=== PATIENT | female | born 1930 | race Caucasian/White ===

== ENCOUNTER 2017-08-09 11:29 | Inpatient (IN) | payer MEDICARE, BC, MEDICAID ==
[2017-08-09] MEDS ORDERED: Sodium Chloride 0.9% 10 ML Syringe FLUSH PRN (12:19)
[2017-08-09] MEDS ORDERED: Docusate Sodium 100 MG Cap PO PRN (12:19)
[2017-08-09] MEDS ORDERED: Polyethylene Glycol 3350 Powder 17 GM Packet PO PRN (12:19)
--- NOTE | 2017-08-09 12:31 | PCM.HP ---
H&P History of Present Illness - General Date of Service: 08/09/17 Admit Problem/Dx: Admission Diagnosis/Problem Admission Diagnosis/Problem Cellulitis Source of Information: Patient, Family, Provider - History of Present Illness Initial Comments - Free Text/Narative: the patient is a 86-year-old lady with a history of diabetes, coronary artery disease, dementia, hypertension. The patient has long-standing lower extremity edema that is severe, managed by lymphedema wraps. The patient was noted to have left heel wound which is thought to be due to decubitus and diabetes. Podiatry has been following. She was noted to have a right foot third toe redness few days ago. The patient was seen in the clinic. Due to multiple allergies it was difficult to find appropriate antibiotic. She was given azithromycin. The patient's redness appear to be worsening and was recommended for direct admission to [facility] in the [place]. She prefers to sleep in chair. But no recent worsening of shortness of breath, chest pain, abdominal pain. The foot is not hurting. She is tolerating lymphedema wraps well. There was no fever noted in the alf. - Related Data Allergies/Adverse Reactions: Allergies Allergy/AdvReac Type Severity Reaction Status Date / Time Penicillins Allergy Cannot Verified 10/25/16 12:02 Remember Home Medications: Home Meds Allopurinol [Zyloprim] 100 mg PO DAILY 01/01/15 [History] Aspirin [Halfprin] 81 mg PO DAILY 01/01/15 [History] Benazepril [Lotensin] 40 mg PO BID 01/01/15 [History] Cyanocobalamin (Vitamin B-12) [Cyanocobalamin Injection] 1 injection IM ASDIRECTED 01/01/15 [History] Docusate Sodium [Colace] 100 mg PO DAILY 01/01/15 [History] Furosemide 40 mg PO BID 01/01/15 [History] Insulin NPH/Insulin Reg,Human [HumuLIN 70-30 Pen] 6 units SUBCUT ACDINNER [History] Insulin NPH/Insulin Reg,Human [HumuLIN 70-30 Pen] 24 units SUBCUT QAM 01/01/15 [ History] Metoprolol Succinate [Toprol XL 50mg] 50 mg PO DAILY 01/01/15 [History] Omeprazole 20 mg PO DAILY 01/01/15 [History] Potassium Chloride 10 meq PO DAILY 01/01/15 [History] Simvastatin [Zocor] 20 mg PO DAILY 01/01/15 [History] Acetaminophen [Tylenol Arthritis Pain] 650 mg PO TID 08/21/16 [History] Vit C/E/Zn/Coppr/Lutein/Zeaxan [Preservision Areds 2 Softgel] 2 each PO DAILY [History] amLODIPine [Norvasc] 5 mg PO DAILY 08/21/16 [History] Escitalopram Oxalate [Lexapro] 5 mg PO BEDTIME 08/30/16 [History] OLANZapine [ZyPREXA] 5 mg PO BEDTIME 08/30/16 [History] Memantine HCl 5 mg PO DAILY 10/25/16 [History] Past Medical History HEENT History: Reports: Impaired Vision Other HEENT History: wears glasses Cardiovascular History: Reports: Bypass, High Cholesterol, Hypertension Respiratory History: Reports: Other (See Below) Other Respiratory History: CHF Gastrointestinal History: Reports: GERD Genitourinary History: Reports: Urinary Incontinence DIGESTER History: Reports: Other OB/BYN History: 6 NVD and 2 miscarriages Musculoskeletal History: Reports: Other (See Below) Other Musculoskeletal History: broken collar bone Neurological History: Reports: CVA Psychiatric History: Reports: Dementia Endocrine/Metabolic History: Reports: Diabetes, Type II, IDDM, Obesity/BMI 30+ Hematologic History: Reports: B12 Deficiency Immunologic History: Reports: None Oncologic (Cancer) History: Reports: None Dermatologic History: Reports: None - Past Surgical History Cardiovascular Surgical History: Reports: Coronary Artery Bypass, Other (See Below) Social & Family History - Family History Family Medical History: Noncontributory Cardiac: Reports: CAD (father, sisters, brothers) Oncologic: Reports: Other (See Below) - Tobacco Use Smoking Status *Q: Former Smoker Years of Tobacco use: 5 Packs/Tins Daily: 1 Second Hand Smoke Exposure: No - Caffeine Use Caffeine Use: Reports: Coffee Caffeine Use Comment: 3-4 cups /day - Alcohol Use Days Per Week of Alcohol Use: 0 - Recreational Drug Use Recreational Drug Use: No - Living Situation & Occupation Living situation: Reports: Extended Care Facility Occupation: Retired H&P Review of Systems - Review of Systems: Review Of Systems: See Below General: Denies: Fever, Chills Pulmonary: Reports: Shortness of Breath (chronic) Cardiovascular: Denies: Chest Pain Gastrointestinal: Denies: Abdominal Pain Skin: Reports: Wound (left heel and right first toe, redness of right second toe) Psychiatric: Reports: Confusion (baseline) Exam - Exam Exam: See Below - Exam Quality Assessment: Supplemental Oxygen General: Alert, Oriented Neck: Supple Lungs: Rales (bilateral) Cardiovascular: Regular Rate, Regular Rhythm (Female) Exam: Normal External Exam Extremities: Pedal Edema (massive bilateral lower extremity edema up to thigh) Skin: Other (left heel deep wound without significant redness, right lower extremity second toe redness somewhat involving the dorsum of the foot, dry wound on first toe) - Patient Data Lab Results Last 24 hrs: Will obtain blood culture, basic metabolic panel, CBC. *Q Meaningful Use (ADM) - VTE *Q VTE Criteria *Q: - Stroke *Q Stroke Criteria *Q: - AMI *Q AMI Criteria *Q: - Problem List (1) Cellulitis SNOMED Code(s): 085665204 ICD Code: L03.90 - CELLULITIS, UNSPECIFIED Status: Acute Current Visit: Yes (2) Chronic hypoxemic respiratory failure SNOMED Code(s): 577294823 ICD Code: J96.11 - CHRONIC RESPIRATORY FAILURE WITH HYPOXIA Status: Acute Current Visit: Yes (3) Diabetes SNOMED Code(s): 20519220 ICD Code: E11.9 - TYPE 2 DIABETES MELLITUS WITHOUT COMPLICATIONS Status: Acute Current Visit: Yes Problem List Initiated/Reviewed/Updated: Yes Orders Last 24hrs: Active Orders 24 hr Category Date Time Status Patient Status [ADT] Routine ADT 08/09/17 12:19 Ordered Glucose [Blood Glucose Check, Bedside] [RC] QIDACANDBED Care 08/09/17 12:17 Ordered Oxygen Therapy [RC] PRN Care 08/09/17 12:19 Ordered Peripheral IV Care [RC] . DIRECTED Care 08/09/17 12:22 Ordered Up With Assistance [RC] ASDIRECTED Care 08/09/17 12:19 Ordered VTE/DVT Education [RC] PER UNIT ROUTINE Care 08/09/17 12:19 Ordered Vital Signs [RC] Q4H Care 08/09/17 12:19 Ordered OT Evaluation and Treatment [CONS] Routine Cons 08/09/17 12:23 Active OT Evaluation and Treatment [CONS] Routine Cons 08/09/17 12:23 Ordered PT Evaluation and Treatment [CONS] Routine Cons 08/09/17 12:23 Ordered Consistent Carbohydrate Diet [DIET] Diet 08/09/17 Dinner Ordered BASIC METABOLIC PANEL,BMP [CHEM] AM Lab 08/10/17 05:11 Ordered CBC WITH AUTO DIFF [HEME] AM Lab 08/10/17 05:11 Ordered CULTURE BLOOD [BC] Stat Lab 08/09/17 12:17 Ordered CULTURE BLOOD [BC] Stat Lab 08/09/17 12:17 Ordered Docusate Sodium [Colace] Med 08/09/17 12:19 Ordered 100 mg PO BID PRN Heparin Sodium Med 08/09/17 14:00 Ordered 5,000 units SUBCUT Q8HR Insulin Aspart [NovoLOG] Med 08/09/17 17:00 Ordered See Protocol SUBCUT TIDAC Polyethylene Glycol 3350 [MiraLAX] Med 08/09/17 12:19 Ordered 17 gm PO DAILY PRN Sodium Chloride 0.9% [Saline Flush] Med 08/09/17 12:19 Ordered 10 ml FLUSH ASDIRECTED PRN Vancomycin Pharmacy to Dose [Pharmacy to Dose - Med 08/09/17 12:30 Ordered Vancomycin] 1 dose .XX ASDIRECTED Blood Culture x2 Reflex Set [OM.PC] Stat Oth 08/09/17 12:17 Ordered Peripheral IV Insertion Adult [OM.PC] Routine Oth 08/09/17 12:19 Ordered Saline Lock Insert [OM.PC] Routine Oth 08/09/17 12:19 Ordered Resuscitation Status Routine Resus Stat 08/09/17 12:19 Ordered Medication Orders Docusate Sodium (Colace) 100 mg PO BID PRN PRN Reason: Constipation Heparin Sodium (Porcine) (Heparin Sodium) 5,000 units SUBCUT Q8HR ELIA Insulin Aspart (Novolog) 0 unit SUBCUT TIDAC ELIA PRN Reason: Protocol Polyethylene Glycol (Miralax) 17 gm PO DAILY PRN PRN Reason: Constipation Sodium Chloride (Saline Flush) 10 ml FLUSH ASDIRECTED PRN PRN Reason: Keep Vein Open Vancomycin HCl (Pharmacy To Dose - Vancomycin) 1 dose .XX ASDIRECTED ELIA Assessment/Plan Comment:: #1 right lower extremity second toe redness appears to have cellulitis Concern for possible osteomyelitis I will obtain blood culture, x-ray of the foot The patient has numerous allergies. We will start IV vancomycin. #2 massive lower extremity edema I will increase the patient's diuretics, continue lymphedema wraps Monitor electrolytes and renal function test #3 history of coronary artery disease likely peripheral artery disease as well Will treat with Plavix, metoprolol, aspirin, Zocor #4 hypertension treat the patient with clonidine Norvasc metoprolol benazepril Follow blood pressure and adjust as needed #5 history of dementia Continue on Zyprexa Will be high risk for hospitalization related acute encephalopathy and delirium development #6 DVT prophylaxis will be with subcutaneous heparin
[2017-08-09 12:57] LABS: CHLORIDE,CL 107 mmol/L (101-111); SODIUM,NA 141 mmol/L (135-145)
--- NOTE | 2017-08-09 14:51 | CR ---
Clinical history: 86-year-old female swelling "red" second toe. Interpretation: Abnormal. Pronounced soft tissue swelling base of the second toe without sign of underlying fracture or inflamm atory periostitis. No current evidence of osteomyelitis. Generalized osteoporosis and chronic mild arthritic changes involving the first metatarsal-phalangeal and all interphalangeal/DIP joints. (Arteriovascular calcifications characteristic of diabetic). Sof t tissue swelling around the ankle.. CONCLUSION: No acute fracture or dislocation right foot. Soft tissue swelling ankle and second toe. No foreign bodies or inflammatory periostitis.
[2017-08-09] MEDS: Furosemide 40 MG Tab PO SCH (15:11)
[2017-08-09] MEDS: Heparin Sodium 5,000 Units/ML Vial SUBCUT SCH ×2 (15:11→21:24)
[2017-08-09] MEDS: Insulin Isophane NPH, Human 100 Units/ML 10 ML Vial SUBCUT SCH (17:31)
[2017-08-09] MEDS: Insulin Aspart 100 Units/ML 3 ML Pen SUBCUT SCH (17:35)
[2017-08-09] MEDS: MELATONIN 1 MG PO SCH (21:20)
[2017-08-09] MEDS: MELATONIN 3 MG PO SCH (21:21)
[2017-08-09] MEDS: Metoprolol Succinate 25 MG Tab.ER PO SCH (21:23)
[2017-08-09] MEDS: cloNIDine 0.1 MG Tab PO SCH (21:24)
[2017-08-09] MEDS: Docusate Sodium 100 MG Cap PO SCH (21:24)
[2017-08-10] MEDS: traMADol 50 MG Tab PO PRN ×3 (05:18→23:38)
[2017-08-10] MEDS: Heparin Sodium 5,000 Units/ML Vial SUBCUT SCH ×3 (06:56→21:51)
[2017-08-10] MEDS: Omeprazole 20 MG Cap.CR PO SCH (06:56)
[2017-08-10] MEDS: Potassium Chloride 10 MEQ Tab.ER PO SCH (08:42)
[2017-08-10] MEDS: Furosemide 40 MG Tab PO SCH ×2 (08:42→13:22)
[2017-08-10] MEDS: Insulin Aspart 100 Units/ML 3 ML Pen SUBCUT SCH ×3 (08:43→17:30)
[2017-08-10] MEDS: Docusate Sodium 100 MG Cap PO SCH ×2 (08:43→20:52)
[2017-08-10] MEDS: cloNIDine 0.1 MG Tab PO SCH ×2 (08:43→20:52)
[2017-08-10] MEDS: Aspirin 81 MG Tab.EC PO SCH (08:43)
[2017-08-10] MEDS: Escitalopram 10 MG Tab PO SCH (08:43)
[2017-08-10] MEDS: Memantine 10 MG Tab PO SCH (08:44)
[2017-08-10] MEDS: Benazepril 10 MG Tab PO SCH (08:44)
[2017-08-10] MEDS: Insulin Isophane NPH, Human 100 Units/ML 10 ML Vial SUBCUT SCH ×2 (08:45→17:26)
[2017-08-10] MEDS: amLODIPine 5 MG Tab PO SCH (08:45)
[2017-08-10] MEDS: Allopurinol 100 MG Tab PO SCH (08:45)
[2017-08-10] MEDS: Clopidogrel 75 MG Tab PO SCH (08:46)
[2017-08-10] MEDS: Metoprolol Succinate 25 MG Tab.ER PO SCH ×2 (08:46→20:53)
--- NOTE | 2017-08-10 09:18 | PCM.PN ---
- General Info Date of Service: 08/10/17 Admission Dx/Problem (Free Text): Admission Diagnosis/Problem Admission Diagnosis/Problem Cellulitis Subjective Update: The patient is feeling well, no fever overnight. No significant pain in the lower extremities. Tolerating lymphedema wrap okay Redness has somewhat improved but still present. The redness started days ago, was not responding to oral outpatient antibiotics. Started on vancomycin - Review of Systems General: Denies: Fever Pulmonary: Denies: Shortness of Breath Cardiovascular: Denies: Chest Pain Gastrointestinal: Denies: Abdominal Pain Genitourinary: Denies: Dysuria - Patient Data Vitals - Most Recent: Last Vital Signs Temp 37.1 C 08/10/17 07:00 Pulse 64 08/10/17 08:46 Resp 20 08/10/17 07:00 BP 152/50 H 08/10/17 08:46 Pulse Ox 99 08/10/17 07:00 Weight - Most Recent: 77.8 kg I&O - Last 24 Hours: Intake & Output 08/09/17 08/10/17 08/10/17 22:59 06:59 14:59 Intake Total 250 Output Total 250 250 Balance 0 -250 Lab Results Last 24 Hours: Laboratory Results - last 24 hr 08/09/17 08/09/17 08/09/17 Range/Units 12:28 12:28 17:08 WBC 5.2 (5.0-10.0) 10^3/uL RBC 3.41 L (4.2-5.4) 10^6/uL Hgb 10.8 L (12.0-16.0) g/dL Hct 33.2 L (37.0-47.0) % MCV 97.4 (80-100) fL MCH 31.7 (27.0-34.0) pg MCHC 32.5 L (33.0-35.0) g/dL Plt Count 126 L (150-450) 10^3/uL Neut % (Auto) 61.7 (42.2-75.2) % Lymph % (Auto) 24.0 (20.5-50.1) % [place] % (Auto) 10.4 H (2-8) % Eos % (Auto) 3.7 H (1.0-3.0) % Baso % (Auto) 0.2 (0.0-1.0) % Sodium 141 (135-145) mmol/L Potassium 3.9 (3.6-5.0) mmol/L Chloride 107 (101-111) mmol/L Carbon Dioxide 26.0 (21.0-31.0) mmol/L Anion Gap 11.9 BUN 43 H (7-18) mg/dL Creatinine 1.1 (0.6-1.3) mg/dL Est Cr Clr Drug Dosing TNP Estimated GFR (MDRD) 47 Glucose 79 (74-105) mg/dL POC Glucose 67 L (83-110) mg/dl Calcium 10.3 H (8.4-10.2) mg/dl 08/09/17 08/10/17 08/10/17 Range/Units 20:55 05:45 05:45 WBC 4.8 L (5.0-10.0) 10^3/uL RBC 3.41 L (4.2-5.4) 10^6/uL Hgb 10.5 L (12.0-16.0) g/dL Hct 33.8 L (37.0-47.0) % MCV 99.1 (80-100) fL MCH 30.8 (27.0-34.0) pg MCHC 31.1 L (33.0-35.0) g/dL Plt Count 126 L (150-450) 10^3/uL Neut % (Auto) 59.9 (42.2-75.2) % Lymph % (Auto) 25.8 (20.5-50.1) % [place] % (Auto) 10.1 H (2-8) % Eos % (Auto) 4.0 H (1.0-3.0) % Baso % (Auto) 0.2 (0.0-1.0) % Sodium 140 (135-145) mmol/L Potassium 4.0 (3.6-5.0) mmol/L Chloride 107 (101-111) mmol/L Carbon Dioxide 25.0 (21.0-31.0) mmol/L Anion Gap 12.0 BUN 41 H (7-18) mg/dL Creatinine 0.9 (0.6-1.3) mg/dL Est Cr Clr Drug Dosing 38.03 Estimated GFR (MDRD) 59 Glucose 127 H (74-105) mg/dL POC Glucose 142 H (83-110) mg/dl Calcium 10.2 (8.4-10.2) mg/dl 08/10/17 Range/Units 07:57 WBC (5.0-10.0) 10^3/uL RBC (4.2-5.4) 10^6/uL Hgb (12.0-16.0) g/dL Hct (37.0-47.0) % MCV (80-100) fL MCH (27.0-34.0) pg MCHC (33.0-35.0) g/dL Plt Count (150-450) 10^3/uL Neut % (Auto) (42.2-75.2) % Lymph % (Auto) (20.5-50.1) % [place] % (Auto) (2-8) % Eos % (Auto) (1.0-3.0) % Baso % (Auto) (0.0-1.0) % Sodium (135-145) mmol/L Potassium (3.6-5.0) mmol/L Chloride (101-111) mmol/L Carbon Dioxide (21.0-31.0) mmol/L Anion Gap BUN (7-18) mg/dL Creatinine (0.6-1.3) mg/dL Est Cr Clr Drug Dosing Estimated GFR (MDRD) Glucose (74-105) mg/dL POC Glucose 130 H (83-110) mg/dl Calcium (8.4-10.2) mg/dl Med Orders - Current: Current Medications Allopurinol (Zyloprim) 100 mg PO DAILY [facility] Last Admin: 08/10/17 08:45 Dose: 100 mg Amlodipine Besylate (Norvasc) 10 mg PO DAILY [facility] Last Admin: 08/10/17 08:45 Dose: 10 mg Aspirin (Halfprin) 81 mg PO DAILY [facility] Last Admin: 08/10/17 08:43 Dose: 81 mg Benazepril HCl (Lotensin) 20 mg PO DAILY [facility] Last Admin: 08/10/17 08:44 Dose: 20 mg Clonidine HCl (Catapres) 0.1 mg PO BID [facility] Last Admin: 08/10/17 08:43 Dose: 0.1 mg Clopidogrel Bisulfate (Plavix) 75 mg PO DAILY [facility] Last Admin: 08/10/17 08:46 Dose: 75 mg Docusate Sodium (Colace) 100 mg PO BID PRN PRN Reason: Constipation Docusate Sodium (Colace) 100 mg PO BID [facility] Last Admin: 08/10/17 08:43 Dose: 100 mg Escitalopram Oxalate (Lexapro) 5 mg PO DAILY [facility] Last Admin: 08/10/17 08:43 Dose: 5 mg Furosemide (Lasix) 40 mg PO BIDDIURETIC [facility] Last Admin: 08/10/17 08:42 Dose: 40 mg Heparin Sodium (Porcine) (Heparin Sodium) 5,000 units SUBCUT Q8HR [facility] Last Admin: 08/10/17 06:56 Dose: 5,000 units Vancomycin HCl 1 gm/ Sodium (Chloride) 250 mls @ 166.667 mls/hr IV Q24H [facility] Last Admin: 08/09/17 15:11 Dose: 166.667 mls/hr Insulin Aspart (Novolog) 0 unit SUBCUT TIDAC [facility] PRN Reason: Protocol Last Admin: 08/10/17 08:43 Dose: Not Given Insulin Human NPH (Novolin N) 4 unit SUBCUT ACDINNER [facility] Last Admin: 08/09/17 17:31 Dose: 4 units Insulin Human NPH (Novolin N) 22 unit SUBCUT QAM [facility] Last Admin: 08/10/17 08:45 Dose: 22 units Memantine (Namenda) 5 mg PO DAILY [facility] Last Admin: 08/10/17 08:44 Dose: 5 mg Metoprolol Succinate (Toprol Xl) 75 mg PO BID [facility] Last Admin: 08/10/17 08:46 Dose: 75 mg Non-Formulary Medication (Acetaminophen [Tylenol Arthritis Pain]) 650 mg PO TID [facility] Melatonin 3 Mg (Tablets Own Med) 0 mg PO BEDTIME [facility] Last Admin: 08/09/17 21:21 Dose: 3 mg Melatonin 1 Mg (Tablets Own Med) 0 each PO BEDTIME [facility] Last Admin: 08/09/17 21:20 Dose: 2 each Omeprazole (Omeprazole) 20 mg PO ACBRK [facility] Last Admin: 08/10/17 06:56 Dose: 20 mg Polyethylene Glycol (Miralax) 17 gm PO DAILY PRN PRN Reason: Constipation Potassium Chloride (Klor-Con 10) 10 meq PO DAILY@0800 [facility] Last Admin: 08/10/17 08:42 Dose: 10 meq Sodium Chloride (Saline Flush) 10 ml FLUSH ASDIRECTED PRN PRN Reason: Keep Vein Open Tramadol HCl (Ultram) 50 mg PO Q6H PRN PRN Reason: Pain Last Admin: 08/10/17 05:18 Dose: 50 mg Vancomycin HCl (Pharmacy To Dose - Vancomycin) 1 dose .XX ASDIRECTED ELIA - Exam General: Alert, Oriented Lungs: Crackles (Scattered and bilateral) Cardiovascular: Regular Rate GI/Abdominal Exam: Normal Bowel Sounds, Soft, Non-Tender Extremities: Pedal Edema Skin: Other (Right foot second toe still somewhat red) - Problem List & Annotations (1) Cellulitis SNOMED Code(s): 133816124 Code(s): L03.90 - CELLULITIS, UNSPECIFIED Status: Acute Current Visit: Yes (2) Chronic hypoxemic respiratory failure SNOMED Code(s): 989333887 Code(s): J96.11 - CHRONIC RESPIRATORY FAILURE WITH HYPOXIA Status: Acute Current Visit: Yes (3) Diabetes SNOMED Code(s): 49004530 Code(s): E11.9 - TYPE 2 DIABETES MELLITUS WITHOUT COMPLICATIONS Status: Acute Current Visit: Yes - Problem List Review Problem List Initiated/Reviewed/Updated: Yes - My Orders Last 24 Hours: My Active Orders 08/09/17 12:17 Glucose [Blood Glucose Check, Bedside] [RC] QIDACANDBED Blood Culture x2 Reflex Set [OM.PC] Stat 08/09/17 12:19 Patient Status [ADT] Routine Oxygen Therapy [RC] PRN Up With Assistance [RC] ASDIRECTED VTE/DVT Education [RC] PER UNIT ROUTINE Vital Signs [RC] 07,11,15,19,23,03 Docusate Sodium [Colace] 100 mg PO BID PRN Polyethylene Glycol 3350 [MiraLAX] 17 gm PO DAILY PRN Sodium Chloride 0.9% [Saline Flush] 10 ml FLUSH ASDIRECTED PRN Peripheral IV Insertion Adult [OM.PC] Routine Saline Lock Insert [OM.PC] Routine Resuscitation Status Routine 08/09/17 12:22 Peripheral IV Care [RC] . DIRECTED 08/09/17 12:23 OT Evaluation and Treatment [CONS] Routine OT Evaluation and Treatment [CONS] Routine PT Evaluation and Treatment [CONS] Routine 08/09/17 12:28 CULTURE BLOOD [BC] Stat 08/09/17 12:30 Vancomycin Pharmacy to Dose [Pharmacy to Dose - Vancomycin] 1 dose .XX ASDIRECTED 08/09/17 12:32 CULTURE BLOOD [BC] Stat 08/09/17 13:03 Dietary Supplements [RC] TIDMEALS 08/09/17 13:27 traMADol [Ultram] 50 mg PO Q6H PRN 08/09/17 14:00 Acetaminophen [Tylenol Arthritis Pain] 650 mg PO TID Furosemide [Lasix] 40 mg PO BIDDIURETIC Heparin Sodium 5,000 units SUBCUT Q8HR Vancomycin [Vancocin] 1 gm Sodium Chloride 0.9% [Normal Saline] 250 ml IV Q24H 08/09/17 14:09 Wound Care [RC] DAILY 08/09/17 17:00 Insulin Aspart [NovoLOG] See Protocol SUBCUT TIDAC Insulin Isophane NPH, Human [NovoLIN N] 4 unit SUBCUT ACDINNER 08/09/17 21:00 Docusate Sodium [Colace] 100 mg PO BID Melatonin [Melatonin] 0 mg PO BEDTIME Metoprolol Succinate [Toprol XL] 75 mg PO BID Non-Formulary Medication [NF Drug] 0 each PO BEDTIME cloNIDine [Catapres] 0.1 mg PO BID 08/09/17 Dinner Consistent Carbohydrate Diet [DIET] Fluid Restriction [DIET] 08/10/17 06:00 Omeprazole 20 mg PO ACBRK 08/10/17 08:00 Potassium Chloride [Klor-Con 10] 10 meq PO DAILY@0800 08/10/17 09:00 Allopurinol [Zyloprim] 100 mg PO DAILY Aspirin [Halfprin] 81 mg PO DAILY Benazepril [Lotensin] 20 mg PO DAILY Clopidogrel [Plavix] 75 mg PO DAILY Escitalopram [Lexapro] 5 mg PO DAILY Insulin Isophane NPH, Human [NovoLIN N] 22 unit SUBCUT QAM Memantine [Namenda] 5 mg PO DAILY amLODIPine [Norvasc] 10 mg PO DAILY 08/12/17 13:30 VANCOMYCIN TROUGH [CHEM] Timed - Plan Plan:: #1 right lower extremity second toe redness appears to have cellulitis blood culture: Pending x-ray of the foot showed no osteomyelitis The patient has numerous antibiotic allergies. We will continue with IV vancomycin. #2 massive lower extremity edema I will continue with the patient's increased diuretics, continue lymphedema wraps Monitor electrolytes and renal function test #3 history of coronary artery disease likely peripheral artery disease as well Will treat with Plavix, metoprolol, aspirin, Zocor #4 hypertension treat the patient with clonidine Norvasc metoprolol benazepril Follow blood pressure and adjust as needed #5 history of dementia Continue on Zyprexa Will be high risk for hospitalization related acute encephalopathy and delirium development #6 DVT prophylaxis will be with subcutaneous heparin
[2017-08-10] MEDS ORDERED: Acetaminophen 325 MG Tab PO PRN (18:10)
[2017-08-10] MEDS: MELATONIN 1 MG PO SCH (20:55)
[2017-08-10] MEDS: MELATONIN 3 MG PO SCH (20:55)
[2017-08-11] MEDS: Heparin Sodium 5,000 Units/ML Vial SUBCUT SCH ×3 (05:35→21:54)
[2017-08-11] MEDS: Omeprazole 20 MG Cap.CR PO SCH (05:35)
[2017-08-11] MEDS: Insulin Aspart 100 Units/ML 3 ML Pen SUBCUT SCH ×3 (09:09→17:23)
[2017-08-11] MEDS: Insulin Isophane NPH, Human 100 Units/ML 10 ML Vial SUBCUT SCH ×2 (09:14→17:56)
[2017-08-11] MEDS: Potassium Chloride 10 MEQ Tab.ER PO SCH (09:20)
[2017-08-11] MEDS: Furosemide 40 MG Tab PO SCH ×2 (09:20→14:53)
[2017-08-11] MEDS: Aspirin 81 MG Tab.EC PO SCH (09:20)
[2017-08-11] MEDS: Allopurinol 100 MG Tab PO SCH (09:21)
[2017-08-11] MEDS: Clopidogrel 75 MG Tab PO SCH (09:21)
[2017-08-11] MEDS: Docusate Sodium 100 MG Cap PO SCH ×2 (09:21→21:50)
[2017-08-11] MEDS: Escitalopram 10 MG Tab PO SCH (09:53)
[2017-08-11] MEDS: Memantine 10 MG Tab PO SCH (09:54)
[2017-08-11] MEDS: Metoprolol Succinate 25 MG Tab.ER PO SCH ×2 (10:05→21:48)
[2017-08-11] MEDS: Benazepril 10 MG Tab PO SCH (10:06)
[2017-08-11] MEDS: amLODIPine 5 MG Tab PO SCH (10:07)
[2017-08-11] MEDS: cloNIDine 0.1 MG Tab PO SCH ×2 (10:08→21:50)
[2017-08-11] MEDS ORDERED: Albuterol/Ipratropium 3.0-0.5 MG/3 ML Neb Soln NEB PRN (10:36)
--- NOTE | 2017-08-11 10:41 | PCM.PN ---
- General Info Date of Service: 08/11/17 Admission Dx/Problem (Free Text): Admission Diagnosis/Problem Admission Diagnosis/Problem Cellulitis Subjective Update: The patient is feeling well, no fever overnight. Has chronic pain in the lower extremities. Tolerating lymphedema wrap Redness has improved but still present. The redness started days ago, was not responding to oral outpatient antibiotics. Continued on vancomycin She has been non ambulatory in the group home - Review of Systems General: Reports: Weakness. Denies: Fever Pulmonary: Denies: Shortness of Breath, Cough, Wheezing Cardiovascular: Denies: Chest Pain Gastrointestinal: Denies: Abdominal Pain Neurological: Reports: Confusion (Mild at baseline) - Patient Data Vitals - Most Recent: Last Vital Signs Temp 36.8 C 08/11/17 10:33 Pulse 50 L 08/11/17 10:33 Resp 20 08/11/17 10:33 BP 153/48 H 08/11/17 10:33 Pulse Ox 100 08/11/17 10:33 Weight - Most Recent: 77.8 kg I&O - Last 24 Hours: Intake & Output 08/10/17 08/11/17 08/11/17 22:59 06:59 14:59 Intake Total 200 50 Output Total 500 400 Balance -300 50 -400 Lab Results Last 24 Hours: Laboratory Results - last 24 hr 08/10/17 08/10/17 08/10/17 Range/Units 10:47 17:08 20:45 POC Glucose 166 H 65 L 97 (83-110) mg/dl 08/11/17 Range/Units 07:38 POC Glucose 96 (83-110) mg/dl Anatoly Results Last 24 Hours: Microbiology 08/09/17 12:32 Aerobic Blood Culture - Preliminary Blood - Venous - Lab Draw NO GROWTH AFTER 1 DAY Anaerobic Blood Culture - Preliminary NO GROWTH AFTER 1 DAY 08/09/17 12:28 Aerobic Blood Culture - Preliminary Blood - Venous NO GROWTH AFTER 1 DAY Anaerobic Blood Culture - Preliminary NO GROWTH AFTER 1 DAY Med Orders - Current: Current Medications Acetaminophen (Tylenol) 650 mg PO Q4H PRN PRN Reason: Pain Last Admin: 08/10/17 18:30 Dose: 650 mg Albuterol/Ipratropium (Duoneb 3.0-0.5 Mg/3 Ml) 3 ml NEB Q4HRRT PRN PRN Reason: sob, cough Allopurinol (Zyloprim) 100 mg PO DAILY [facility] Last Admin: 08/11/17 09:21 Dose: 100 mg Amlodipine Besylate (Norvasc) 10 mg PO DAILY [facility] Last Admin: 08/11/17 10:07 Dose: 10 mg Aspirin (Halfprin) 81 mg PO DAILY [facility] Last Admin: 08/11/17 09:20 Dose: 81 mg Benazepril HCl (Lotensin) 20 mg PO DAILY [facility] Last Admin: 08/11/17 10:06 Dose: 20 mg Clonidine HCl (Catapres) 0.1 mg PO BID [facility] Last Admin: 08/11/17 10:08 Dose: 0.1 mg Clopidogrel Bisulfate (Plavix) 75 mg PO DAILY [facility] Last Admin: 08/11/17 09:21 Dose: 75 mg Docusate Sodium (Colace) 100 mg PO BID PRN PRN Reason: Constipation Docusate Sodium (Colace) 100 mg PO BID [facility] Last Admin: 08/11/17 09:21 Dose: 100 mg Escitalopram Oxalate (Lexapro) 5 mg PO DAILY [facility] Last Admin: 08/11/17 09:53 Dose: 5 mg Furosemide (Lasix) 40 mg PO BIDDIURETIC [facility] Last Admin: 08/11/17 09:20 Dose: 40 mg Heparin Sodium (Porcine) (Heparin Sodium) 5,000 units SUBCUT Q8HR [facility] Last Admin: 08/11/17 05:35 Dose: 5,000 units Vancomycin HCl 1 gm/ Sodium (Chloride) 250 mls @ 166.667 mls/hr IV Q24H [facility] Last Admin: 08/10/17 13:22 Dose: 166.667 mls/hr Insulin Aspart (Novolog) 0 unit SUBCUT TIDAC [facility] PRN Reason: Protocol Last Admin: 08/11/17 09:09 Dose: Not Given Insulin Human NPH (Novolin N) 4 unit SUBCUT ACDINNER [facility] Last Admin: 08/10/17 17:26 Dose: Not Given Insulin Human NPH (Novolin N) 22 unit SUBCUT QAM [facility] Last Admin: 08/11/17 09:14 Dose: 22 units Memantine (Namenda) 5 mg PO DAILY [facility] Last Admin: 08/11/17 09:54 Dose: 5 mg Metoprolol Succinate (Toprol Xl) 75 mg PO BID [facility] Last Admin: 08/11/17 10:05 Dose: 75 mg Melatonin 3 Mg (Tablets Own Med) 0 mg PO BEDTIME [facility] Last Admin: 08/10/17 20:55 Dose: 3 mg Melatonin 1 Mg (Tablets Own Med) 0 each PO BEDTIME [facility] Last Admin: 08/10/17 20:55 Dose: 2 each Omeprazole (Omeprazole) 20 mg PO ACBRK [facility] Last Admin: 08/11/17 05:35 Dose: 20 mg Polyethylene Glycol (Miralax) 17 gm PO DAILY PRN PRN Reason: Constipation Potassium Chloride (Klor-Con 10) 10 meq PO DAILY@0800 [facility] Last Admin: 08/11/17 09:20 Dose: 10 meq Sodium Chloride (Saline Flush) 10 ml FLUSH ASDIRECTED PRN PRN Reason: Keep Vein Open Tramadol HCl (Ultram) 50 mg PO Q6H PRN PRN Reason: Pain Last Admin: 08/10/17 23:38 Dose: 50 mg Vancomycin HCl (Pharmacy To Dose - Vancomycin) 1 dose .XX ASDIRECTED [facility] Discontinued Medications Non-Formulary Medication (Acetaminophen [Tylenol Arthritis Pain]) 650 mg PO TID [facility] - Exam General: Alert, Oriented Neck: Supple Lungs: Rhonchi Cardiovascular: Irregular Rhythm GI/Abdominal Exam: Normal Bowel Sounds, Soft, Non-Tender Extremities: Pedal Edema Skin: Other (Right second toe somewhat swollen and red but the proximal foot has cleared up) - Problem List & Annotations (1) Cellulitis SNOMED Code(s): 194231929 Code(s): L03.90 - CELLULITIS, UNSPECIFIED Status: Acute Current Visit: Yes (2) Chronic hypoxemic respiratory failure SNOMED Code(s): 329348140 Code(s): J96.11 - CHRONIC RESPIRATORY FAILURE WITH HYPOXIA Status: Acute Current Visit: Yes (3) Diabetes SNOMED Code(s): 59273362 Code(s): E11.9 - TYPE 2 DIABETES MELLITUS WITHOUT COMPLICATIONS Status: Acute Current Visit: Yes - Problem List Review Problem List Initiated/Reviewed/Updated: Yes - My Orders Last 24 Hours: My Active Orders 08/10/17 18:10 Acetaminophen [Tylenol] 650 mg PO Q4H PRN 08/11/17 10:36 RT Aerosol Therapy [RC] ASDIRECTED Albuterol/Ipratropium [DuoNeb 3.0-0.5 MG/3 ML] 3 ml NEB Q4HRRT PRN 08/12/17 05:15 BASIC METABOLIC PANEL,BMP [CHEM] AM CBC WITH AUTO DIFF [HEME] AM 08/12/17 13:30 VANCOMYCIN TROUGH [CHEM] Timed - Plan Plan:: #1 right lower extremity second toe redness appears to have cellulitis blood culture: Negative for now x-ray of the foot showed no osteomyelitis The patient has numerous antibiotic allergies. We will continue with IV vancomycin. Plan to switch to Bactrim on discharge #2 massive lower extremity edema I will continue with the patient's increased diuretics, continue lymphedema wraps Monitor electrolytes and renal function test #3 history of coronary artery disease likely peripheral artery disease as well Will treat with Plavix, metoprolol, aspirin, Zocor #4 hypertension treat the patient with clonidine, Norvasc, metoprolol, benazepril Follow blood pressure and adjust as needed #5 history of dementia Continue on Zyprexa Will be high risk for hospitalization related acute encephalopathy and delirium development #6 DVT prophylaxis will be with subcutaneous heparin
[2017-08-11] MEDS: Non-Formulary Medication 1 Each (Acetaminophen [Tylenol Arthritis Pain] 650 MG) PO SCH ×2 (15:03→15:04)
[2017-08-11] MEDS: MELATONIN 3 MG PO SCH (21:51)
[2017-08-11] MEDS: MELATONIN 1 MG PO SCH (21:52)
[2017-08-12] MEDS: Omeprazole 20 MG Cap.CR PO SCH (05:57)
[2017-08-12] MEDS: Insulin Aspart 100 Units/ML 3 ML Pen SUBCUT SCH (08:23)
[2017-08-12] MEDS: Benazepril 10 MG Tab PO SCH (08:40)
[2017-08-12] MEDS: Furosemide 40 MG Tab PO SCH (08:41)
[2017-08-12] MEDS: Metoprolol Succinate 25 MG Tab.ER PO SCH (08:41)
[2017-08-12] MEDS: Insulin Isophane NPH, Human 100 Units/ML 10 ML Vial SUBCUT SCH (08:41)
[2017-08-12] MEDS: Clopidogrel 75 MG Tab PO SCH (08:42)
[2017-08-12] MEDS: Potassium Chloride 10 MEQ Tab.ER PO SCH (08:42)
[2017-08-12] MEDS: Memantine 10 MG Tab PO SCH (08:42)
[2017-08-12] MEDS: Aspirin 81 MG Tab.EC PO SCH (08:42)
[2017-08-12] MEDS: amLODIPine 5 MG Tab PO SCH (08:42)
[2017-08-12] MEDS: Escitalopram 10 MG Tab PO SCH (08:42)
[2017-08-12] MEDS: Docusate Sodium 100 MG Cap PO SCH (08:43)
[2017-08-12] MEDS: Allopurinol 100 MG Tab PO SCH (08:43)
[2017-08-12] MEDS: cloNIDine 0.1 MG Tab PO SCH (08:43)
[2017-08-12] MEDS ORDERED: Enoxaparin 30 MG/0.3 ML Syringe SUBCUT SCH (09:00)
--- NOTE | 2017-08-12 09:32 | PCM.DCSUM1 ---
Discharge Summary - Hospital Course Free Text/Narrative:: The patient is an 86-year-old lady with a history of chronic lower extremity edema. The patient developed redness of the right second toe. Initially was treated with oral antibiotic azithromycin as an outpatient. The redness has worsened The patient was admitted. #1 right lower extremity second toe redness appears to have cellulitis blood culture: Negative for now x-ray of the foot showed no osteomyelitis The patient has numerous antibiotic allergies. She was treated with IV vancomycin. We will switch to Bactrim on discharge #2 massive lower extremity edema I will continue with the patient's increased diuretics, continue lymphedema wraps Monitor electrolytes and renal function test periodically #3 history of coronary artery disease likely peripheral artery disease as well Will treat with Plavix, metoprolol, aspirin, Zocor #4 hypertension treat the patient with clonidine, Norvasc, metoprolol, benazepril #5 history of dementia Continue on Zyprexa - Discharge Data Discharge Date: 08/12/17 Discharge Disposition: DC/Tfer to SNF 03 Condition: Good - Discharge Diagnosis/Problem(s) (1) Cellulitis SNOMED Code(s): 702784204 ICD Code: L03.90 - CELLULITIS, UNSPECIFIED Status: Acute Current Visit: Yes (2) Chronic hypoxemic respiratory failure SNOMED Code(s): 174137163 ICD Code: J96.11 - CHRONIC RESPIRATORY FAILURE WITH HYPOXIA Status: Acute Current Visit: Yes (3) Diabetes SNOMED Code(s): 71969249 ICD Code: E11.9 - TYPE 2 DIABETES MELLITUS WITHOUT COMPLICATIONS Status: Acute Current Visit: Yes - Patient Summary/Data Consults: Consultations 08/09/17 12:23 OT Evaluation and Treatment [CONS] Routine OT Evaluation and Treatment [CONS] Routine PT Evaluation and Treatment [CONS] Routine - Patient Instructions Diet: Heart Healthy Diet, Diabetic Diet Fluid Restriction: 1500 mL Activity: As Tolerated - Discharge Plan Prescriptions/Med Rec: Furosemide [Lasix] 40 mg PO BIDDIURETIC #60 tablet Sulfamethoxazole/Trimethoprim [IJD: Sulfamethoxazole/Trimethoprim DS] 1 tab PO BID #10 tab Home Medications: Home Meds Allopurinol [Zyloprim] 100 mg PO DAILY 01/01/15 [History] Aspirin [Halfprin] 81 mg PO DAILY 01/01/15 [History] Benazepril [Lotensin] 20 mg PO DAILY 01/01/15 [History] Cyanocobalamin (Vitamin B-12) [Cyanocobalamin Injection] 1 injection IM ASDIRECTED 01/01/15 [History] Insulin NPH/Insulin Reg,Human [HumuLIN 70-30 Pen] 4 units SUBCUT ACDINNER [History] Insulin NPH/Insulin Reg,Human [HumuLIN 70-30 Pen] 22 units SUBCUT QAM 01/01/15 [ History] Metoprolol Succinate [Toprol XL 50mg] 75 mg PO BID 01/01/15 [History] Omeprazole 20 mg PO DAILY 01/01/15 [History] Potassium Chloride 10 meq PO DAILY 01/01/15 [History] Acetaminophen [Tylenol Arthritis Pain] 650 mg PO TID 08/21/16 [History] amLODIPine [Norvasc] 10 mg PO DAILY 08/21/16 [History] Escitalopram Oxalate [Lexapro] 5 mg PO DAILY 08/30/16 [History] Memantine HCl 5 mg PO DAILY 10/25/16 [History] Clopidogrel [Plavix] 75 mg PO DAILY 08/09/17 [History] Docusate Sodium [Colace] 100 mg PO BID 08/09/17 [History] Melatonin 5 mg PO BEDTIME 08/09/17 [History] cloNIDine [Catapres] 0.1 mg PO BID 08/09/17 [History] traMADol [Ultram] 50 mg PO Q6H 08/09/17 [History] Furosemide [Lasix] 40 mg PO BIDDIURETIC #60 tablet 08/12/17 [Rx] Sulfamethoxazole/Trimethoprim [IJD: Sulfamethoxazole/Trimethoprim DS] 1 tab PO BID #10 tab 08/12/17 [Rx] Referrals: Rodrigo Hernández MD [Primary Care Provider] - (in 2-3 days re: cellulitis, increased diuretics) - Discharge Summary/Plan Comment DC Time >30 min.: No - General Info Date of Service: 08/12/17 Admission Dx/Problem (Free Text: Admission Diagnosis/Problem Admission Diagnosis/Problem Cellulitis Subjective Update: The patient is feeling well, no fever. Redness has improved but still present in the second toe. The edema appears less - Review of Systems General: Denies: Fever Pulmonary: Denies: Shortness of Breath Cardiovascular: Denies: Chest Pain Gastrointestinal: Denies: Abdominal Pain Genitourinary: Denies: Dysuria - Patient Data Vitals - Most Recent: Last Vital Signs Temp 37.0 C 08/12/17 07:00 Pulse 51 L 08/12/17 08:41 Resp 20 08/12/17 07:00 BP 151/50 H 08/12/17 08:43 Pulse Ox 82 L 08/12/17 07:00 Weight - Most Recent: 77.8 kg I&O - Last 24 hours: Intake & Output 08/11/17 08/12/17 08/12/17 22:59 06:59 14:59 Intake Total 645 200 Output Total 325 555 300 Balance 320 -355 -300 Lab Results - Last 24 hrs: Laboratory Results - last 24 hr 08/11/17 08/11/17 08/11/17 Range/Units 10:54 17:02 20:47 WBC (5.0-10.0) 10^3/uL RBC (4.2-5.4) 10^6/uL Hgb (12.0-16.0) g/dL Hct (37.0-47.0) % MCV (80-100) fL MCH (27.0-34.0) pg MCHC (33.0-35.0) g/dL Plt Count (150-450) 10^3/uL Neut % (Auto) (42.2-75.2) % Lymph % (Auto) (20.5-50.1) % Mills % (Auto) (2-8) % Eos % (Auto) (1.0-3.0) % Baso % (Auto) (0.0-1.0) % Sodium (135-145) mmol/L Potassium (3.6-5.0) mmol/L Chloride (101-111) mmol/L Carbon Dioxide (21.0-31.0) mmol/L Anion Gap BUN (7-18) mg/dL Creatinine (0.6-1.3) mg/dL Est Cr Clr Drug Dosing mL/min Estimated GFR (MDRD) Glucose (74-105) mg/dL POC Glucose 225 H 107 108 (83-110) mg/dl Calcium (8.4-10.2) mg/dl Urine Color (YELLOW) Urine Appearance (CLEAR) Urine pH (5.0-9.0) Ur Specific Rhodes (1.005-1.030) Urine Protein (NEGATIVE) Urine Glucose (UA) (NEGATIVE) Urine Ketones (NEGATIVE) Urine Occult Blood (NEGATIVE) Urine Nitrite (NEGATIVE) Urine Bilirubin (NEGATIVE) Urine Urobilinogen (0.2-1.0) mg/dL Ur Leukocyte Esterase (NEGATIVE) Urine RBC /HPF Urine WBC (0-5/HPF) /HPF Ur Epithelial Cells /HPF Urine Bacteria (0-FEW/HPF) /HPF Urine Mucus /LPF 08/11/17 08/12/17 08/12/17 Range/Units 22:20 06:00 06:00 WBC 5.4 (5.0-10.0) 10^3/uL RBC 3.63 L (4.2-5.4) 10^6/uL Hgb 11.1 L (12.0-16.0) g/dL Hct 36.2 L (37.0-47.0) % MCV 99.7 (80-100) fL MCH 30.6 (27.0-34.0) pg MCHC 30.7 L (33.0-35.0) g/dL Plt Count 133 L (150-450) 10^3/uL Neut % (Auto) 57.7 (42.2-75.2) % Lymph % (Auto) 24.2 (20.5-50.1) % Mills % (Auto) 13.2 H (2-8) % Eos % (Auto) 4.5 H (1.0-3.0) % Baso % (Auto) 0.4 (0.0-1.0) % Sodium 138 (135-145) mmol/L Potassium 4.1 (3.6-5.0) mmol/L Chloride 102 (101-111) mmol/L Carbon Dioxide 29.0 (21.0-31.0) mmol/L Anion Gap 11.1 BUN 40 H (7-18) mg/dL Creatinine 0.9 (0.6-1.3) mg/dL Est Cr Clr Drug Dosing 38.03 mL/min Estimated GFR (MDRD) 59 Glucose 73 L (74-105) mg/dL POC Glucose (83-110) mg/dl Calcium 10.6 H (8.4-10.2) mg/dl Urine Color Yellow (YELLOW) Urine Appearance Cloudy (CLEAR) Urine pH 5.0 (5.0-9.0) Ur Specific Rhodes 1.010 (1.005-1.030) Urine Protein Negative (NEGATIVE) Urine Glucose (UA) Negative (NEGATIVE) Urine Ketones Negative (NEGATIVE) Urine Occult Blood Trace-intact H (NEGATIVE) Urine Nitrite Negative (NEGATIVE) Urine Bilirubin Negative (NEGATIVE) Urine Urobilinogen 0.2 (0.2-1.0) mg/dL Ur Leukocyte Esterase Small H (NEGATIVE) Urine RBC 0-5 /HPF Urine WBC 10-20 H (0-5/HPF) /HPF Ur Epithelial Cells Few /HPF Urine Bacteria Moderate H (0-FEW/HPF) /HPF Urine Mucus Few H /LPF 08/12/17 Range/Units 07:58 WBC (5.0-10.0) 10^3/uL RBC (4.2-5.4) 10^6/uL Hgb (12.0-16.0) g/dL Hct (37.0-47.0) % MCV (80-100) fL MCH (27.0-34.0) pg MCHC (33.0-35.0) g/dL Plt Count (150-450) 10^3/uL Neut % (Auto) (42.2-75.2) % Lymph % (Auto) (20.5-50.1) % Mills % (Auto) (2-8) % Eos % (Auto) (1.0-3.0) % Baso % (Auto) (0.0-1.0) % Sodium (135-145) mmol/L Potassium (3.6-5.0) mmol/L Chloride (101-111) mmol/L Carbon Dioxide (21.0-31.0) mmol/L Anion Gap BUN (7-18) mg/dL Creatinine (0.6-1.3) mg/dL Est Cr Clr Drug Dosing mL/min Estimated GFR (MDRD) Glucose (74-105) mg/dL POC Glucose 84 (83-110) mg/dl Calcium (8.4-10.2) mg/dl Urine Color (YELLOW) Urine Appearance (CLEAR) Urine pH (5.0-9.0) Ur Specific Rhodes (1.005-1.030) Urine Protein (NEGATIVE) Urine Glucose (UA) (NEGATIVE) Urine Ketones (NEGATIVE) Urine Occult Blood (NEGATIVE) Urine Nitrite (NEGATIVE) Urine Bilirubin (NEGATIVE) Urine Urobilinogen (0.2-1.0) mg/dL Ur Leukocyte Esterase (NEGATIVE) Urine RBC /HPF Urine WBC (0-5/HPF) /HPF Ur Epithelial Cells /HPF Urine Bacteria (0-FEW/HPF) /HPF Urine Mucus /LPF CLARISSE Results - Last 24 hrs: Microbiology 08/09/17 12:32 Aerobic Blood Culture - Preliminary Blood - Venous - Lab Draw NO GROWTH AFTER 2 DAYS Anaerobic Blood Culture - Preliminary NO GROWTH AFTER 2 DAYS 08/09/17 12:28 Aerobic Blood Culture - Preliminary Blood - Venous NO GROWTH AFTER 2 DAYS Anaerobic Blood Culture - Preliminary NO GROWTH AFTER 2 DAYS Med Orders - Current: Current Medications Acetaminophen (Tylenol) 650 mg PO Q4H PRN PRN Reason: Pain Last Admin: 08/10/17 18:30 Dose: 650 mg Albuterol/Ipratropium (Duoneb 3.0-0.5 Mg/3 Ml) 3 ml NEB Q4HRRT PRN PRN Reason: sob, cough Last Admin: 08/11/17 11:30 Dose: 3 ml Allopurinol (Zyloprim) 100 mg PO DAILY [facility] Last Admin: 08/12/17 08:43 Dose: 100 mg Amlodipine Besylate (Norvasc) 10 mg PO DAILY [facility] Last Admin: 08/12/17 08:42 Dose: 10 mg Aspirin (Halfprin) 81 mg PO DAILY [facility] Last Admin: 08/12/17 08:42 Dose: 81 mg Benazepril HCl (Lotensin) 20 mg PO DAILY [facility] Last Admin: 08/12/17 08:40 Dose: 20 mg Clonidine HCl (Catapres) 0.1 mg PO BID [facility] Last Admin: 08/12/17 08:43 Dose: 0.1 mg Clopidogrel Bisulfate (Plavix) 75 mg PO DAILY [facility] Last Admin: 08/12/17 08:42 Dose: 75 mg Docusate Sodium (Colace) 100 mg PO BID PRN PRN Reason: Constipation Docusate Sodium (Colace) 100 mg PO BID [facility] Last Admin: 08/12/17 08:43 Dose: 100 mg Enoxaparin Sodium (Lovenox) 30 mg SUBCUT DAILY [facility] Last Admin: 08/12/17 08:43 Dose: 30 mg Escitalopram Oxalate (Lexapro) 5 mg PO DAILY [facility] Last Admin: 08/12/17 08:42 Dose: 5 mg Furosemide (Lasix) 40 mg PO BIDDIURETIC [facility] Last Admin: 08/12/17 08:41 Dose: 40 mg Vancomycin HCl 1 gm/ Sodium (Chloride) 250 mls @ 166.667 mls/hr IV Q24H [facility] Last Admin: 08/11/17 14:57 Dose: 166.667 mls/hr Insulin Aspart (Novolog) 0 unit SUBCUT TIDAC [facility] PRN Reason: Protocol Last Admin: 08/12/17 08:23 Dose: Not Given Insulin Human NPH (Novolin N) 4 unit SUBCUT ACDINNER [facility] Last Admin: 08/11/17 17:56 Dose: 4 units Insulin Human NPH (Novolin N) 22 unit SUBCUT QAM [facility] Last Admin: 08/12/17 08:41 Dose: 22 units Memantine (Namenda) 5 mg PO DAILY [facility] Last Admin: 08/12/17 08:42 Dose: 5 mg Metoprolol Succinate (Toprol Xl) 75 mg PO BID [facility] Last Admin: 08/12/17 08:41 Dose: 75 mg Melatonin 3 Mg (Tablets Own Med) 0 mg PO BEDTIME [facility] Last Admin: 08/11/17 21:51 Dose: 3 mg Melatonin 1 Mg (Tablets Own Med) 0 each PO BEDTIME [facility] Last Admin: 08/11/17 21:52 Dose: 2 each Omeprazole (Omeprazole) 20 mg PO ACBRK [facility] Last Admin: 08/12/17 05:57 Dose: 20 mg Polyethylene Glycol (Miralax) 17 gm PO DAILY PRN PRN Reason: Constipation Potassium Chloride (Klor-Con 10) 10 meq PO DAILY@0800 [facility] Last Admin: 08/12/17 08:42 Dose: 10 meq Sodium Chloride (Saline Flush) 10 ml FLUSH ASDIRECTED PRN PRN Reason: Keep Vein Open Last Admin: 08/11/17 14:59 Dose: 10 ml Tramadol HCl (Ultram) 50 mg PO Q6H PRN PRN Reason: Pain Last Admin: 08/10/17 23:38 Dose: 50 mg Vancomycin HCl (Pharmacy To Dose - Vancomycin) 1 dose .XX ASDIRECTED [facility] Discontinued Medications Heparin Sodium (Porcine) (Heparin Sodium) 5,000 units SUBCUT Q8HR [facility] Last Admin: 08/11/17 21:54 Dose: 5,000 units Non-Formulary Medication (Acetaminophen [Tylenol Arthritis Pain]) 650 mg PO TID [facility] Last Admin: 08/11/17 15:04 Dose: Not Given - Exam General: Reports: Alert, Oriented (Limited) Neck: Reports: Supple Lungs: Reports: Rhonchi Cardiovascular: Reports: Regular Rate, Regular Rhythm GI/Abdominal Exam: Normal Bowel Sounds, Soft, Non-Tender, Other (Obese) Extremities: Normal Inspection, Pedal Edema (With lymphedema wraps) Skin: Reports: Other (Mild swelling and redness of the right second toe) *Q Meaningful Use (DIS) - VTE *Q VTE Criteria *Q: - Stroke *Q Stroke Criteria *Q: - AMI *Q AMI Criteria *Q:
[2017-08-12 10:55] VITALS: BP 130/40
== END 2017-08-12 11:10 | DRG 603 ==
LOC: UNDOADMIN 11:29 → DL.MS 11:29
PROVIDERS: ADMIT Internal Medicine; ATTEND Internal Medicine
DX: L03.031 Cellulitis of right toe (principal); R60.9 Edema, unspecified; I25.10 Atherosclerotic heart disease of native coronary artery without angina pectoris; I10 Essential (primary) hypertension; I73.9 Peripheral vascular disease, unspecified; F03.90 Unspecified dementia, unspecified severity, without behavioral disturbance, psychotic disturbance, mood disturbance, and anxiety; E11.9 Type 2 diabetes mellitus without complications; Z79.4 Long term (current) use of insulin; K21.9 Gastro-esophageal reflux disease without esophagitis; I50.9 Heart failure, unspecified; Z86.73 Personal history of transient ischemic attack (TIA), and cerebral infarction without residual deficits; Z95.1 Presence of aortocoronary bypass graft; Z87.891 Personal history of nicotine dependence
CPT/HCPCS: 36415; 73620-RT; 80048; 81001; 82962; 85025; 87040; 94010; 94640; 97140-GO; 97166-GO; A9270-GY; J1644; J1650; J1815; J1815-GY; J3370; J7050

== ENCOUNTER 2017-11-09 11:18 | Emergency (ER) | payer MEDICARE, BC, MEDICAID ==
[2017-11-09 12:40] VITALS: BP 148/59
--- NOTE | 2017-11-09 13:38 | EDM.PDOC ---
ED HPI GENERAL MEDICAL PROBLEM - General Chief Complaint: General Stated Complaint: FROM [facility] Time Seen by Provider: 11/09/17 13:37 Source of Information: Reports: Family, Longterm Records History Limitations: Reports: Altered Mental Status - History of Present Illness INITIAL COMMENTS - FREE TEXT/NARRATIVE: Patient is brought here by her daughter. Patient has bilateral lower extremity pitting edema along with cellulitis to her toes bilaterally. Onset: Gradual Duration: Day(s): Location: Reports: Other (Bilateral feet) Treatments CONSULTANT IN ERGONOMICS AND SAFETY: Reports: Dressing(s) - Related Data Allergies Allergy/AdvReac Type Severity Reaction Status Date / Time Penicillins Allergy Severe systemic Verified 11/09/17 12:25 vasculitis aspartame Allergy Nausea Verified 11/09/17 12:25 hydrochlorothiazide Allergy Nausea Verified 11/09/17 12:25 [From Zestoretic] levofloxacin [From Levaquin] Allergy Nausea Verified 11/09/17 12:25 lisinopril [From Zestoretic] Allergy Nausea Verified 11/09/17 12:25 sibutramine [From Meridia] Allergy Nausea Verified 11/09/17 12:25 Home Meds: Home Meds Allopurinol [Zyloprim] 100 mg PO DAILY 01/01/15 [History] Aspirin [Halfprin] 81 mg PO DAILY 01/01/15 [History] Benazepril [Lotensin] 20 mg PO DAILY 01/01/15 [History] Cyanocobalamin (Vitamin B-12) [Cyanocobalamin Injection] 1 injection IM ASDIRECTED 01/01/15 [History] Insulin NPH/Insulin Reg,Human [HumuLIN 70-30 Pen] 16 units SUBCUT QAM 01/01/15 [ History] Metoprolol Succinate [Toprol XL 50mg] 75 mg PO BID 01/01/15 [History] Omeprazole 20 mg PO DAILY 01/01/15 [History] Potassium Chloride 10 meq PO DAILY 01/01/15 [History] Acetaminophen [Tylenol Arthritis Pain] 650 mg PO TID 08/21/16 [History] amLODIPine [Norvasc] 10 mg PO DAILY 08/21/16 [History] Escitalopram Oxalate [Lexapro] 5 mg PO DAILY 08/30/16 [History] Memantine HCl 5 mg PO DAILY 10/25/16 [History] Clopidogrel [Plavix] 75 mg PO DAILY 08/09/17 [History] Docusate Sodium [Colace] 100 mg PO BID 08/09/17 [History] Melatonin 5 mg PO BEDTIME 08/09/17 [History] cloNIDine [Catapres] 0.1 mg PO BID 08/09/17 [History] traMADol [Ultram] 50 mg PO Q6H 08/09/17 [History] Furosemide [Lasix] 40 mg PO BIDDIURETIC #60 tablet 08/12/17 [Rx] Doxycycline [Doxycycline Hyclate] 100 mg PO DAILY 11/09/17 [History] Past Medical History HEENT History: Reports: Cataract, Impaired Vision Other HEENT History: wears glasses Cardiovascular History: Reports: Bypass, Heart Valve Replacement, High Cholesterol, Hypertension Respiratory History: Reports: Other (See Below) Other Respiratory History: CHF Gastrointestinal History: Reports: GERD Genitourinary History: Reports: Renal Disease, Urinary Incontinence Other Genitourinary History: History of Diabetes 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 OB/BYN History: 6 NVD and 2 miscarriages Musculoskeletal History: Reports: Osteoarthritis, Other (See Below) Other Musculoskeletal History: broken collar bone Neurological History: Reports: Alzheimers Disease, CVA Other Neuro History: 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 Psychiatric History: Reports: Alzheimers Disease, Dementia Endocrine/Metabolic History: Reports: Diabetes, Type II, IDDM, Obesity/BMI 30+ Hematologic History: Reports: B12 Deficiency Immunologic History: Reports: None Oncologic (Cancer) History: Reports: None Dermatologic History: Reports: Decubitus Ulcer, Other (See Below) Other Dermatologic History: left heel - Infectious Disease History Infectious Disease History: Reports: None - Past Surgical History Head Surgeries/Procedures: Reports: None HEENT Surgical History: Reports: None Cardiovascular Surgical History: Reports: Coronary Artery Bypass, Valve Replacement, Vascular Surgery, Other (See Below) Respiratory Surgical History: Reports: None GI Surgical History: Reports: None Female Surgical History: Reports: None Endocrine Surgical History: Reports: None Neurological Surgical History: Reports: None Musculoskeletal Surgical History: Reports: None Social & Family History - Family History Family Medical History: Noncontributory Cardiac: Reports: CAD Oncologic: Reports: Other (See Below) - Tobacco Use Smoking Status *Q: Unknown Ever Smoked Years of Tobacco use: 5 Packs/Tins Daily: 1 Used Tobacco, but Quit: No Second Hand Smoke Exposure: No - Caffeine Use Caffeine Use: Reports: Coffee, Tea Caffeine Use Comment: 3-4 cups /day - Alcohol Use Days Per Week of Alcohol Use: 0 - Recreational Drug Use Recreational Drug Use: No - Living Situation & Occupation Living situation: Reports: Extended Care Facility Occupation: Retired ED ROS GENERAL - Review of Systems Review Of Systems: Unable To Obtain ED EXAM, GENERAL - Physical Exam Exam: See Below Exam Limited By: Altered Mental Status General Appearance: Other (Sleeping) Respiratory/Chest: No Respiratory Distress, Lungs Clear Cardiovascular: Regular Rate, Rhythm Extremities: Other (Bilateral foot exam shows onychomycosis to multiple toenails. Patient has erythema to first second and third toe bilaterally. There is no active drainage. She has edema pitting both lower extremities.) Course - Vital Signs Last Recorded V/S: Last Vital Signs Temp 98.2 F 11/09/17 12:34 Pulse 49 L 11/09/17 12:34 Resp 18 11/09/17 12:34 BP 148/59 H 11/09/17 12:34 Pulse Ox 94 L 11/09/17 12:34 - Orders/Labs/Meds Labs: Laboratory Tests 11/09/17 11/09/17 Range/Units 14:05 14:05 WBC 4.2 L (5.0-10.0) 10^3/uL RBC 3.33 L (4.2-5.4) 10^6/uL Hgb 10.3 L (12.0-16.0) g/dL Hct 32.8 L (37.0-47.0) % MCV 98.5 (80-100) fL MCH 30.9 (27.0-34.0) pg MCHC 31.4 L (33.0-35.0) g/dL Plt Count 92 L (150-450) 10^3/uL Neut % (Auto) 57.3 (42.2-75.2) % Lymph % (Auto) 26.0 (20.5-50.1) % [place] % (Auto) 13.4 H (2-8) % Eos % (Auto) 3.1 H (1.0-3.0) % Baso % (Auto) 0.2 (0.0-1.0) % Sodium 138 (135-145) mmol/L Potassium 3.5 L (3.6-5.0) mmol/L Chloride 103 (101-111) mmol/L Carbon Dioxide 29.0 (21.0-31.0) mmol/L Anion Gap 9.5 BUN 36 H (7-18) mg/dL Creatinine 0.8 (0.6-1.3) mg/dL Est Cr Clr Drug Dosing 36.68 mL/min Estimated GFR (MDRD) > 60 Glucose 124 H (74-105) mg/dL Calcium 9.8 (8.4-10.2) mg/dl - Re-Assessments/Exams Free Text/Narrative Re-Assessment/Exam: Labs are reviewed with daughter. Discussed medications and further treatment options. If patient does take Lamisil she will need liver monitoring. Suggested starting and reevaluate in a couple days if clinical response. 11/09/17 15:02 Departure - Departure Time of Disposition: 15:02 Disposition: Home, Self-Care 01 Condition: Fair Clinical Impression: Toe infection, Onychomycosis, Leg edema Fungal infection of foot Qualifiers: Laterality: bilateral Qualified Code(s): B35.3 - Tinea pedis Anemia Qualifiers: Anemia type: unspecified type Qualified Code(s): D64.9 - Anemia, unspecified - Discharge Information Forms: ED Department Discharge Additional Instructions: Follow-up with regular provider this week. Call or return if any problems questions or concerns
[2017-11-09 14:31] LABS: CHLORIDE,CL 103 mmol/L (101-111); SODIUM,NA 138 mmol/L (135-145)
== END 2017-11-09 15:10 | disposition home or self-care (01) ==
LOC: DL.ED 11:18
DX: B35.1 Tinea unguium (principal); B35.3 Tinea pedis; D64.9 Anemia, unspecified; E78.00 Pure hypercholesterolemia, unspecified; I11.0 Hypertensive heart disease with heart failure; I50.9 Heart failure, unspecified; K21.9 Gastro-esophageal reflux disease without esophagitis; E11.9 Type 2 diabetes mellitus without complications; G30.9 Alzheimer's disease, unspecified; F02.80 Dementia in other diseases classified elsewhere, unspecified severity, without behavioral disturbance, psychotic disturbance, mood disturbance, and anxiety; Z72.0 Tobacco use; Z95.2 Presence of prosthetic heart valve; Z95.5 Presence of coronary angioplasty implant and graft; Z79.4 Long term (current) use of insulin; Z79.82 Long term (current) use of aspirin; Z79.02 Long term (current) use of antithrombotics/antiplatelets; Z79.2 Long term (current) use of antibiotics; Z79.899 Other long term (current) drug therapy; Z88.0 Allergy status to penicillin; Z88.1 Allergy status to other antibiotic agents; Z88.8 Allergy status to other drugs, medicaments and biological substances
CPT/HCPCS: 36415; 80048; 85025; 99285